=== PATIENT | female | born 1970 | race African-American/Black ===

== ENCOUNTER 2018-10-16 16:48 | Observation (INO) | payer OTHER, MEDICAID ==
[~2018-10-16] VITALS: Ht 185.4 cm; Wt 87.5 kg
[2018-10-16 16:52] VITALS: BP 176/91
[2018-10-16 17:56] LABS: ABSOLUTE EOSINOPHILS 0.1 thou/uL (0.0-0.7); ABSOLUTE LYMPHOCYTES 3.1 thou/uL (0.8-5.3); ABSOLUTE MONOCYTES 1.1 thou/uL (0.0-1.2); ABSOLUTE NEUTROPHILS 7.1 thou/uL (1.6-8.1); BASOPHILS 0.3 %; EOSINOPHILS 1.2 %; HEMATOCRIT 36.5 % (37.0-47.0); HEMOGLOBIN 12.2 gm/dL (12.0-15.0); LYMPHOCYTES 27.2 %; MCHC 33.6 g/dL (28.0-37.0); MCV 80.5 fL (80.0-100.0); MONOCYTES 9.8 %; MPV 8.9 fl. (7.2-11.1); NUCLEATED RBCS 0 /100WBC; PLATELET COUNT* 335 thou/uL (150-400); POLYS 61.5 %; RBC 4.53 mil/uL (4.20-5.00); RDW-CV 15.5 % (10.5-14.5); WBC 11.5 thou/uL (4.0-11.0)
[2018-10-16 17:58] LABS: ANION GAP 9 mmol/L (7-16); BUN 17 mg/dL (7-18); CALCIUM 8.7 mg/dL (8.5-10.1); CHLORIDE 105 mmol/L (98-107); CO2 25 mmol/L (21-32); CREATININE 0.9 mg/dL (0.6-1.3); GLUCOSE 94 mg/dL (70-99); POTASSIUM 3.6 mmol/L (3.5-5.1); SODIUM 139 mmol/L (136-145)
[2018-10-16 18:09] LABS: ALBUMIN 3.2 g/dL (3.4-5.0); ALKALINE PHOSPHATASE 48 U/L (46-116); LIPASE 182 U/L (73-393); NT-PRO BRAIN NAT PEPTIDE 87 pg/mL (<300); SGOT 15 U/L (15-37); SGPT 23 U/L (30-65); TOTAL BILIRUBIN 0.4 mg/dL (<0.1-1.0); TOTAL PROTEIN 7.3 g/dL (6.4-8.2); TROPONIN-I LEVEL <0.06 ng/mL (<0.06)
[2018-10-16 18:15] LABS: APTT 29.8 Seconds (25.0-31.3)
--- NOTE | 2018-10-16 18:24 | NUR ---
PT AMBULATED TO WITHOUT INCIDENT.
[2018-10-16 20:19] VITALS: BP 154/84
[2018-10-16 21:00] VITALS: BP 155/87
[2018-10-17] VITALS: BP 152/81
[2018-10-17 04:00] VITALS: BP 141/89
--- NOTE | 2018-10-17 04:14 | NUR ---
VITALS WNL. SEE MAR. SEE CHARTING. HOURLY ROUNDING FOR SAFETY.
[2018-10-17 08:00] VITALS: BP 141/79
--- NOTE | 2018-10-17 10:20 | NUR ---
RECEIVED REPORT FROM JULIENNE YOUNG. ASSUMED CARE OF PT AROUND 0730. PT A&OX4. VSS. STAFF DEVELOPMENT EDUCATOR IN PLACE TRACING SR. AM ASSESSMENT AND VITALS COMPLETED CHARTED. IV TO RIGHT AC INTACT AND SALINE LOCKED. PT REPORTS CHEST PAIN 6/10 THAT OCCURED AFTER WALKING TO THE RESTROOM. NITRO GIVEN WITH RELIEF. CARDIOLOGY IN TO SEE PT - PLAN IS FOR STRESS TEST IN A.M.. MEDS PER EMAR. PT EATING BOX LUNCH AT THIS TIME. ALL NEEDS MET. LOW FALL RISK PRECAUTIONS IN PLACE. CALL LIGHT IS WITHIN REACH. HOURLY ROUNDING PERFORMED. WCTM.
[2018-10-17 11:22] VITALS: BP 118/59
[2018-10-17 16:00] VITALS: BP 140/86
--- NOTE | 2018-10-17 17:29 | NUR ---
VSS. DEMURRAGE AGENT REMAINS IN PLACE WITH NO CHAGNES THIS SHIFT. PT HAD DECREASING CHEST PAIN THROUGHOUT THE SHIFT - PT OBTAINED RELIEF FROM IV PAIN MEDICATION. PT CURRENTLY DENIES CHEST PAIN. IV TO RIGHT AC REMAINS INTACT AND SALINE LOCKED. PT UP AD DEANDRE TO RESTROOM, VOIDING WITHOUT ISSUE. TOLERATING DIET. NO COMPLAINTS. ALL NEEDS MET AT THIS TIME. LOW FALL RISK PRECAUTIONS IN PLACE. CALL LIGHT IS WITHIN REACH, HOURLY ROUNDING PERFORMED. WCTM FOR DURATION OF SHIFT,
--- NOTE | 2018-10-17 18:49 | NUR ---
PT SHOWERED AND WENT TO THE RESTROOM; CHEST PAIN HAS RETURNED 02/07. IV PAIN MEDS GIVEN. EDG OBTAINED.
[2018-10-18] VITALS: BP 124/68
[2018-10-18 04:00] VITALS: BP 145/78
--- NOTE | 2018-10-18 06:42 | NUR ---
VITALS WNL. PT NPO SINCE 0000 FOR STRESS TEST IN AM. SEE MAR. SEE CHARTING. HOURLY ROUNDING FOR SAFETY.
[2018-10-18 08:00] VITALS: BP 155/92
--- NOTE | 2018-10-18 08:00 | NUR ---
PT LYING IN BED, CALL LIGHT IN REACH, FORM RAISER TRACING SINUS RHYTHM. PT REMAINS NPO FOR STRESS TEST, DENIES ANY PAIN, VSS. LS CTA, PT ON RA. WILL CONT TO MONITOR.
--- NOTE | 2018-10-18 12:46 | CON ---
[address] [address] CONSULTATION Name: MOLLY MOLINA Room: [address] Cecy Maravilla#: [id number] Admission: 10/16/18 Attend Phys: Rob Samayoa MD Discharge: Date of : 70 Report #: [id number] THIS REPORT FOR: //name// CC: RICARDO physician/PCP Rob Samayoa DATE OF SERVICE: 10/17/2018 CARDIOLOGY CONSULTATION: HISTORY OF PRESENT ILLNESS: I was asked by Dr. Samayoa to see this 48-year-old woman in cardiology consultation for evaluation and treatment of chest pain. This lady has had chest pain continuously for 3 days. The chest discomfort is reproduced by palpation of the sternum. She gets it with activity. It is better with rest. It does occur at rest; however, it is associated with shortness of breath, but not nausea or vomiting. She has had some diaphoresis with it. There is no relationship to food. She thought that it got better with nitroglycerin. The pain does radiate into her left shoulder and left arm and neck, however. The pain has been continuous for 3 days, but it does tend to wax and wane. It is definitely worse if she moves her chest wall and sits up or turn sideways. It is worse if she takes a deep breath. She does have some dyspnea on exertion with it. She has not had orthopnea, PND or edema. The dyspnea on exertion comes and goes. She is not short of breath at rest. She has had 2 episodes of syncope in the distant past that seemed to have been orthostatic. Coronary risk factors include smoking. She only smokes 5 cigarettes a day, but she smoked since she was 16. I told her in no uncertain terms today to stop smoking. She denies hypercholesterolemia or diabetes or high blood pressure, although she was hypertensive when she was admitted and she does have left ventricular hypertrophy on her EKG and her cardiac silhouette was prominent on her chest x-ray. Otherwise, her chest x-ray was unremarkable. She was started on carvedilol shortly after she was admitted and her blood pressure is still a bit on the high side. She was 141/89 this morning. She does have a family history of coronary artery disease. Her father had bypass graft surgery at age 65. She has a sister who has congestive heart failure. She has not had renal disease or peripheral vascular disease or strokes or TIAs or pain in her legs when she walks or open or nonhealing wounds. She has no prior cardiac history. She has no other past medical history. PAST SURGICAL HISTORY: She had surgery on her left ankle and her right wrist. ALLERGIES: SHE IS ALLERGIC TO AMOXICILLIN, PENICILLIN. MEDICATIONS: She has not been taking any medications at home. SOCIAL HISTORY: She is single. Smokes 5 cigarettes a day. Drinks about 6 alcoholic [place] [address] CONSULTATION Name: MOLLY MOLINA Room: [address] Cecy Maravilla#: [id number] Admission: 10/16/18 Attend Phys: Rob Samayoa MD Discharge: Date of : 70 Report #: [id number] REVIEW OF SYSTEMS: Positive for cough, chest discomfort, shortness of breath with exercise, shortness of breath lying down, waking up short of breath and nearly passing out. The shortness of breath issues are just with this event as is the chest discomfort. She has PENICILLIN ALLERGY. She describes she wears glasses. Otherwise, review of systems is negative for some 40 different complaints in 14 different system categories. Please see our review of system form for details and negatives in review of systems. PHYSICAL EXAMINATION: GENERAL: She presents as well-developed, well-nourished woman in no acute distress. Her anterior chest wall over the sternum was quite tender to palpation and did reproduce her symptoms. VITAL SIGNS: Her pulse was 61 and regular, blood pressure is 141/89, respirations 18 and regular, and temperature is 98.1. HEENT: Her head was atraumatic. Eyes clear. NECK: Supple. There is no jugular venous distention or hepatojugular reflux. Thyroid is not enlarged. There is no adenopathy. SKIN: Warm and dry. Mucous membranes are moist. LUNGS: Clear to auscultation and percussion. HEART: Revealed normal first and second heart sound. There is soft S4. There is no S3. There are no murmurs, rubs, thrills, heaves or gallops. PMI is nondisplaced. ABDOMEN: Soft, flat, nontender, no palpable masses, no organomegaly. EXTREMITIES: Reveal no cyanosis, clubbing or edema. NEUROLOGIC: The patient mentated normally, talked normally, moved all extremities normally. LABORATORY DATA: EKG reveals normal sinus rhythm and left ventricular hypertrophy by voltage in aVL, otherwise is fairly unremarkable. Chest x-ray showed only some mild cardiac fullness of the cardiac silhouette. Troponins were negative x 3. BNP was only 87. IMPRESSION: 1. Chest pain that is likely musculoskeletal, possibly due to costochondritis. 2. Essential hypertension. 3. Smoking. 4. Left ventricular hypertrophy. RECOMMENDATION: She should get a nuclear stress test and an echo as well as various blood tests. Repeat her EKG and repeat a troponin as well. [facility] [address] [place] [address] CONSULTATION Name: MOLLY MOLINA Room: [address] Cecy Maravilla#: [id number] Admission: 10/16/18 Attend Phys: Rob Samayoa MD Discharge: Date of : 70 Report #: [id number] Thank you very much for asking me to see this patient. If there are any questions, please feel free to contact me. <ELECTRONICALLY SIGNED> By: Alexandro Lee MD, FACC 10/18/18 1246 1017 2052F. Jorge Rodas MD, FACC /nt
[2018-10-18 13:11] LABS: ANA INTERPRETATION Negative (Negative)
--- NOTE | 2018-10-18 14:09 | EKG ---
[place] [address] ELECTROCARDIOGRAM REPORT Name: MOLLY MOLINA Room: [address] M.R.#: [id number] Admission: 10/16/18 Attend Phys: Rob Samayoa MD Discharge: Date of : 70 Report #: [id number] THIS REPORT FOR: //name// [facility] ED Test Date: 2018-10-16 Test Time: 16:54:55 Pat Name: MOLLY MOLINA Department: Room: [facility] Gender: F Mammal Keeper: MINH : 1970 Requested By: Nan Velasco Order Number: [id number] MD: Demetris Mackenzie Measurements Intervals [place] Rate: 71 P: 47 [place]: 155 QRS: -24 QRSD: 97 T: 9 QT: 420 QTc: 457 Interpretive Statements Sinus rhythm Left ventricular hypertrophy No previous ECG available for comparison Electronically Signed On 10-18-2018 14:09:15 AUTOMATIC LUMP MAKING MACHINE TENDER by Demetris Mackenzie [email or web address] <ELECTRONICALLY SIGNED> By: Demetris Mackenzie MD, [facility] 10/18/18 1409 1654 165 Demetris Mackenzie MD, FACC /EPI
--- NOTE | 2018-10-18 14:10 | EKG ---
[place] [address] ELECTROCARDIOGRAM REPORT Name: CHAVA MOLINACANDI Room: [address] M.R.#: [id number] Admission: 10/16/18 Attend Phys: Rob Samayoa MD Discharge: Date of : 70 Report #: [id number] THIS REPORT FOR: //name// [facility] ED Test Date: 2018-10-16 Test Time: 18:05:35 Pat Name: MOLLY MOLINA Department: Room: [address] Gender: F Instructor Trainer Canine Service: SHABBIR : 1970 Requested By: Nan Velasco Order Number: [id number] Cam MD: Demetris Mackenzie Measurements Intervals [place] Rate: 58 P: 31 ID: 164 QRS: -24 QRSD: 97 T: -10 QT: 450 QTc: 443 Interpretive Statements Sinus rhythm Probable left atrial enlargement Left ventricular hypertrophy Borderline T abnormalities, inferior leads No previous ECG available for comparison Electronically Signed On 10-18-2018 14:09:48 LAWYER REAL ESTATE by Demetris Mackenzie [email or web address] <ELECTRONICALLY SIGNED> By: Demetris Mackenzie MD, [facility] 10/18/18 1409 1805 180 Demetris Mackenzie MD, [facility] /EPI
--- NOTE | 2018-10-18 14:13 | EKG ---
[place] [address] ELECTROCARDIOGRAM REPORT Name: ATIFKETURAHMOLLY Room: [address] M.R.#: [id number] Admission: 10/16/18 Attend Phys: Rob Samayoa MD Discharge: Date of : 70 Report #: [id number] THIS REPORT FOR: //name// [facility] Test Date: 2018-10-17 Test Time: 10:18:48 Pat Name: MOLLY MOLINA Department: Room: [address] Gender: F Doormaker: : 1970 Requested By: Girish Rodas Order Number: [id number] Cam MD: Demetris Mackenzie Measurements Intervals [place] Rate: 60 P: 1 [place]: 159 QRS: -20 QRSD: 105 T: -1 QT: 462 QTc: 462 Interpretive Statements Sinus rhythm Left ventricular hypertrophy No previous ECG available for comparison Electronically Signed On 10-18-2018 14:13:20 SILVER DESIGNER by Demetris Mackenzie [email or web address] <ELECTRONICALLY SIGNED> By: Demetris Mackenzie MD, [facility] 10/18/18 1413 1018 17 Demetris Mackenzie MD, FACC /EPI
--- NOTE | 2018-10-18 14:17 | EKG ---
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 Tender: K : 1970 Requested By: Rob Samayoa Order Number: [id number] Cam MD: Demetris Mackenzie Measurements Intervals [place] Rate: 67 P: 14 [place]: 154 QRS: -20 QRSD: 99 T: -2 QT: 433 QTc: 457 Interpretive Statements Sinus rhythm Left ventricular hypertrophy Borderline T abnormalities, inferior leads No previous ECG available for comparison Electronically Signed On 10-18-2018 14:17:23 ECHO VASC TECH by Demetris Mackenzie [email or web address] <ELECTRONICALLY SIGNED> By: Demetris Mackenzie MD, [facility] 10/18/18 1417 52 52 Demetris Mackenzie MD, FACC /EPI
--- NOTE | 2018-10-18 16:21 | CARDNUC ---
[place] [address] CARDIAC NUCLEAR IMAGING REPORT Name: YONIS MOLINANicholas Room: [address] M.RChidi#: [id number] Admission: 10/16/18 Attend Phys: Rob Samayoa, Discharge: Date of : 70 Date of Service: 10/18/18 1621 Report #: [id number] THIS REPORT FOR: //name// APPROVED REPORT Imaging Protocol: Rest Tc-99m/Stress Tc-99m 1 day Study performed: 10/17/2018 10:07:00 Indication: Chest pain, Dyspnea, Syncope, Palpitations, LVH Patient Location: In-Patient Room [facility] Stress Tech: Niecy Puga Stress Nurse: Rosy Brown RN NM Tech:RAMSEY Tijerina Ht: 6 ft 0 in Wt: 190 lbs BSA: 2.08 m2 HR: 63 bpm BP: 164/101 mmHg BMI: 25.76 Rhythm: NSR Medical History Medications: Aspirin, Carvedilol, Nitroglycerin, Atorvastatin Allergies: Amoxicillin Cardiac Risk Factors: Tobacco History (Current/Recent), FHX of CAD Pretest Chest Pain Characteristics: Sharp/Stabbing chest pain 4/10 Resting Data Rest SPECT myocardial perfusion imaging was performed in supine position 60 minutes following the intravenous injection of 12.0 mCi of Tc-99m Sestamibi. Time of rest injection: 1010 The images were gated to evaluate regional wall motion and calculate left ventricular ejection fraction. Administration Route: IV Administration Site: Right AC Pharmacologic Stress Pharmacologic stress test was performed by injecting Regadenoson 0.4 mg IV push over 10-15 seconds immediately followed by the intravenous injection of 34.3 mCi of Tc-99m Sestamibi. Time of stress injection: 12:50 Administration Route: [place] [address] CARDIAC NUCLEAR IMAGING REPORT Name: MOLLY MOLINA Room: [address] MStephanie#: [id number] Admission: 10/16/18 Attend Phys: Rob Samayoa, Discharge: Date of : 70 Date of Service: 10/18/18 1621 Report #: [id number] Administration Site: Right AC Heart Rate at time of stress injection: 122 bpm. Gated Stress SPECT was performed 40 minutes after stress injection. The images were gated to evaluate regional wall motion and calculate left ventricular ejection fraction. Prone imaging was performed. Stress Test Details Stress Test: Pharmacologic stress testing performed using 0.4 mg of regadenoson per 5 mL given IV over 10 seconds. HR Max Heart Rate (APMHR): 172 bpm Resting HR: 63 bpm Target HR (85% APMHR): 146 bpm Max HR Achieved: 122 bpm % of APMHR: 70 Recovery HR: 89 bpm HR response to stress: Normal HR response to stress BP Resting BP: 164/101 mmHg Max BP: 161/109 mmHg Recovery BP: 173/98 mmHg BP response to stress: Normal blood pressure response to stress. Baseline HTN ECG Resting ECG: Sinus Rhythm Stress ECG: Sinus Rhythm ST Change: None Arrhythmia: None Recovery ECG: Sinus Rhythm Recovery ST Change: None Recovery Arrhythmia: None Clinical Reason for Termination: Completed protocol Stress Symptoms: Sharp/Stabbing Chest pain 2/10 during and post test Exercise capacity: 1.00 METs Stress ECG Conclusion negative Perfusion Review of rest data reveals normal perfusion, [place] [address] CARDIAC NUCLEAR IMAGING REPORT Name: MOLLY MOLINA Room: [address]#: [id number] Admission: 10/16/18 Attend Phys: Rob Samayoa, Discharge: Date of : 70 Date of Service: 10/18/18 1621 Report #: [id number] defects.Imaging obtained following vasodilator stress demonstrate a similar, uniform uptake of tracer without defects. Prone imaging was normal. LVEDV is normal.No segental wall motion abnormality seen. Wall Motion normal all segments Nuclear Conclusion ECG Findings: negative for ischemia Clinical Findings: negative for ischemia Nuclear Findings: negative for ischemia Exercise Capacity: normal Left Ventricular Function: normal Risk Study: low Negative perfusion nuclear stress test for ischemia or infarct. <Conclusion> negative <ELECTRONICALLY SIGNED> By: Osiel Owens MD, FACC 10/18/18 162 20 20 Osiel Owens MD, FACC /INF
[2018-10-18 17:53] VITALS: BP 155/92
[2018-10-18] MEDS ORDERED: PRINIVIL20 MG PO (18:01)
[2018-10-18] MEDS ORDERED: LIPITOR40 MG PO (18:02)
[2018-10-18] MEDS ORDERED: ASPIR 8181 M1 PO (18:03)
--- NOTE | 2018-10-18 18:28 | NUR ---
PT DISCHARGED HOME WITH CHILDREN AND SPOUSE VIA WC AND NURSING STAFF. HOURLY ROUNDING COMPLETED, PT DENIES ANY SOA OR CHEST PAIN THIS SHIFT. PT EDUCATED ON ALL DISCHARGE INSTRUCTIONS INCLUDING MEDICATIONS AND FOLLOW UP APPTS, PT STATES UNDERSTANDING. IV AND WIRE COINER REMOVED.
--- NOTE | 2018-10-19 12:25 | 2DMMODE ---
[place] [address] 2 D/M-MODE ECHOCARDIOGRAM Name: MOLLY MOLINA Room: [address] Cecy Maravilla#: [id number] Admission: 10/16/18 Attend Phys: Rob Samayoa, Discharge: 10/18/18 Date of : 70 Date of Service: 10/18/18 1358 Report #: [id number] THIS REPORT FOR: //name// APPROVED REPORT Study performed: 10/18/2018 10:28:42 EXAM: Comprehensive 2D, Doppler, and color-flow Echocardiogram Patient Location: In-Patient Room #: [facility] Status: routine BSA: 2.11 HR: 62 bpm BP: 155/92 mmHg Rhythm: NSR Other Information Study Quality: Good Indications Chest Pain 2D Dimensions IVSd: 10.51 (7-11mm) LVOT Diam: 23.93 (18-24mm) LVDd: 51.55 mm PWd: 11.47 (7-11mm) Ascending Ao: 34.11 (22-36mm) LVDs: 34.96 (25-40mm) Aortic Root: 30.57 mm Volumes Left Atrial Volume (Systole) LA ESV Index: 32.20 mL/m2 Aortic Valve AoV Peak Gilberto.: 1.09 m/s AO Peak Gr.: 4.77 mmHg LVOT Max P.64 mmHg AO Mean Gr.: 2.72 mmHg LVOT Mean P.13 mmHg LVOT Max V: 0.81 m/s AO V2 VTI: 20.70 cm LVOT Mean V: 0.48 m/s RONALDO (VTI): 3.43 cm2 LVOT V1 VTI: 15.80 cm Mitral Valve E/A Ratio: 1.16 MV Decel. Time: 246.56 ms MV E Max Gilberto.: 0.54 m/[place] [address] 2 D/M-MODE ECHOCARDIOGRAM Name: MOLLY MOLINA Room: [address] Cecy Maravilla#: [id number] Admission: 10/16/18 Attend Phys: Rob Samayoa, Discharge: 10/18/18 Date of : 70 Date of Service: 10/18/18 1358 Report #: [id number] MV PHT: 71.50 ms MVA (PHT): 3.08 cm2 TDI E/Lateral E': 5.40 E/Medial E': 4.50 Medial E' Gilberto.: 0.12 m/s Lateral E' Gilberto.: 0.10 m/s Pulmonary Valve PV Peak Gilberto.: 0.78 m/s PV Peak Gr.: 2.45 mmHg Left Ventricle The left ventricle is normal size. There is normal LV segmental wall motion. Mild concentric left ventricular hypertrophy. Left ventricular systolic function is normal. The left ventricular ejection fraction is within the normal range. LVEF is 50-55%. The left ventricular diastolic function is normal. Right Ventricle The right ventricle is normal size. The right ventricular systolic function is normal. Atria The left atrium size is normal. The right atrium size is normal. Aortic Valve The aortic valve is normal in structure. No aortic regurgitation is present. There is no aortic valvular stenosis. Mitral Valve The mitral valve is normal in structure. Mild mitral regurgitation. No evidence of mitral valve stenosis. Tricuspid Valve The tricuspid valve is normal in structure. Unable to assess PA pressure. Trace tricuspid regurgitation. Pulmonic Valve The pulmonary valve is normal in structure. Mild pulmonic regurgitation. Great Vessels The aortic root is normal in size. IVC is normal in size and collapses >50% [place] [address] 2 D/M-MODE ECHOCARDIOGRAM Name: MOLLY MOLINA [address]: [address] [id number] Admission: 10/16/18 Attend Phys: Rob Samayoa, Discharge: 10/18/18 Date of : 70 Date of Service: 10/18/18 1358 Report #: [id number] Pericardium There is no pericardial effusion. <Conclusion> The left ventricle is normal size. Mild concentric left ventricular hypertrophy. Left ventricular systolic function is normal. The left ventricular ejection fraction is within the normal range. LVEF is 50-55%. The left ventricular diastolic function is normal. The right ventricle is normal size. The aortic valve is normal in structure. The mitral valve is normal in structure. Mild mitral regurgitation. The tricuspid valve is normal in structure. IVC is normal in size and collapses >50% with inspiration. There is no pericardial effusion. There is normal LV segmental wall motion. <ELECTRONICALLY SIGNED> By: Demetris Mackenzie MD, FACC 10/18/18 1358 1358 1358 Demetris Mackenzie MD, FACC /INF
== END 2018-10-18 18:25 | disposition home or self-care (01) ==
LOC: M.ERS 16:48 → M.TBA-ER 18:46 → M.2W 18:46
PROVIDERS: Internal Medicine; Personal Emergency Response Attendant
DX: R07.89 Other chest pain (principal); I10 Essential (primary) hypertension; I51.7 Cardiomegaly; F17.210 Nicotine dependence, cigarettes, uncomplicated; Z79.899 Other long term (current) drug therapy; Z79.82 Long term (current) use of aspirin

== ENCOUNTER 2018-12-08 17:06 | Emergency (ER) | payer OTHER, MEDICAID ==
[~2018-12-08] VITALS: Ht 185.4 cm; Wt 79.4 kg
[~2018-12-08 17:06] MED LIST: ASPIR 8181 M1 PO; LIPITOR40 MG PO; PRINIVIL20 MG PO
[2018-12-08 17:40] LABS: ABSOLUTE EOSINOPHILS 0.1 thou/uL (0.0-0.7); ABSOLUTE LYMPHOCYTES 2.9 thou/uL (0.8-5.3); ABSOLUTE MONOCYTES 1.5 thou/uL (0.0-1.2); ABSOLUTE NEUTROPHILS 6.8 thou/uL (1.6-8.1); BASOPHILS 0.4 %; EOSINOPHILS 1.2 %; HEMATOCRIT 34.1 % (37.0-47.0); HEMOGLOBIN 11.6 gm/dL (12.0-15.0); LYMPHOCYTES 25.5 %; MCH 27.5 pg (26.0-34.0); MCV 80.8 fL (80.0-100.0); MONOCYTES 12.9 %; MPV 8.2 fl. (7.2-11.1); NUCLEATED RBCS 0 /100WBC; PLATELET COUNT* 327 thou/uL (150-400); RBC 4.22 mil/uL (4.20-5.00); RDW-CV 15.1 % (10.5-14.5); WBC 11.3 thou/uL (4.0-11.0)
[2018-12-08 17:56] LABS: ALBUMIN 3.1 g/dL (3.4-5.0); ALKALINE PHOSPHATASE 49 U/L (46-116); ANION GAP 9 mmol/L (7-16); BUN 19 mg/dL (7-18); CALCIUM 8.6 mg/dL (8.5-10.1); CHLORIDE 107 mmol/L (98-107); CO2 23 mmol/L (21-32); CREATININE 0.7 mg/dL (0.6-1.3); GLUCOSE 103 mg/dL (70-99); POTASSIUM 3.6 mmol/L (3.5-5.1); SGOT 19 U/L (15-37); SGPT 25 U/L (30-65); SODIUM 139 mmol/L (136-145); TOTAL BILIRUBIN 0.2 mg/dL (<0.1-1.0); TOTAL PROTEIN 7.2 g/dL (6.4-8.2); TROPONIN-I LEVEL <0.06 ng/mL (<0.06)
[2018-12-08 18:23] VITALS: BP 171/99
--- NOTE | 2018-12-09 18:20 | EKG ---
[place] [address] ELECTROCARDIOGRAM REPORT Name: JESSECHAVACANDI Room: [facility]#: [id number] Admission: 12/08/18 Attend Phys: Discharge: 12/08/18 Date of : 70 Report #: [id number] THIS REPORT FOR: //name// ED Test Date: 2018-12-08 Test Time: 17:10:15 Pat Name: MOLLY MOLINA Department: Room: Gender: F Human Resources Recruiter: LISA : 1970 Requested By: Eryn Billings Order Number: [id number] MD: David Alberts Measurements Intervals [place] Rate: 81 P: 56 NE: 149 QRS: -19 QRSD: 98 T: 7 QT: 396 QTc: 460 Interpretive Statements Sinus rhythm Left ventricular hypertrophy, by voltage Anterior Q waves, possibly due to LVH Compared to ECG 10/17/2018 18:53:23 Q waves now present T-wave abnormality no longer present Electronically Signed On 12-09-2018 18:19:51 CDT by David Alberts [email or web address] <ELECTRONICALLY SIGNED> By: David Alberts MD, FAC 12/09/18 1819 1710 171 David Alberts MD, [facility] /EPI
== END 2018-12-08 18:35 | disposition home or self-care (01) ==
LOC: M.ERS 17:06
PROVIDERS: Nurse Practitioner Family
DX: R07.89 Other chest pain (principal); I10 Essential (primary) hypertension; E78.5 Hyperlipidemia, unspecified; F32.9 Major depressive disorder, single episode, unspecified; F41.9 Anxiety disorder, unspecified; F17.210 Nicotine dependence, cigarettes, uncomplicated; Z88.0 Allergy status to penicillin; Z88.1 Allergy status to other antibiotic agents

== ENCOUNTER 2018-12-09 01:00 | Emergency (ER) | payer OTHER, MEDICAID ==
[~2018-12-09] VITALS: Ht 185.4 cm; Wt 79.4 kg
[2018-12-09 01:25] LABS: ABSOLUTE BASOPHILS 0.1 thou/uL (0.0-0.2); ABSOLUTE EOSINOPHILS 0.2 thou/uL (0.0-0.7); ABSOLUTE LYMPHOCYTES 3.4 thou/uL (0.8-5.3); ABSOLUTE MONOCYTES 1.5 thou/uL (0.0-1.2); ABSOLUTE NEUTROPHILS 7.8 thou/uL (1.6-8.1); BASOPHILS 0.8 %; EOSINOPHILS 1.3 %; HEMATOCRIT 35.4 % (37.0-47.0); HEMOGLOBIN 11.9 gm/dL (12.0-15.0); LYMPHOCYTES 26.2 %; MCH 27.3 pg (26.0-34.0); MCHC 33.8 g/dL (28.0-37.0); MCV 80.7 fL (80.0-100.0); MONOCYTES 11.3 %; MPV 8.6 fl. (7.2-11.1); NUCLEATED RBCS 0 /100WBC; PLATELET COUNT* 329 thou/uL (150-400); POLYS 60.4 %; RBC 4.38 mil/uL (4.20-5.00); RDW-CV 15.4 % (10.5-14.5); WBC 12.9 thou/uL (4.0-11.0)
[2018-12-09 01:48] LABS: ALBUMIN 3.1 g/dL (3.4-5.0); ALKALINE PHOSPHATASE 43 U/L (46-116); ANION GAP 10 mmol/L (7-16); BUN 15 mg/dL (7-18); CALCIUM 8.7 mg/dL (8.5-10.1); CHLORIDE 107 mmol/L (98-107); CO2 22 mmol/L (21-32); CREATININE 0.7 mg/dL (0.6-1.3); GLUCOSE 100 mg/dL (70-99); POTASSIUM 3.7 mmol/L (3.5-5.1); SGOT 14 U/L (15-37); SGPT 24 U/L (30-65); SODIUM 139 mmol/L (136-145); TOTAL BILIRUBIN 0.3 mg/dL (<0.1-1.0); TOTAL PROTEIN 7.3 g/dL (6.4-8.2); TROPONIN-I LEVEL <0.06 ng/mL (<0.06)
[2018-12-09 02:01] VITALS: BP 161/93
--- NOTE | 2018-12-09 18:23 | EKG ---
[place] [address] ELECTROCARDIOGRAM REPORT Name: MOLLY MOLINA Room: [facility]#: [id number] Admission: 12/09/18 Attend Phys: Discharge: 12/09/18 Date of : 70 Report #: [id number] THIS REPORT FOR: //name// [facility] ED Test Date: 2018-12-09 Test Time: 01:03:27 Pat Name: MOLLY MOLINA Department: Room: Gender: F Senior Clinician: CASANDRA : 1970 Requested By: Joe Mcgrath Order Number: [id number] MD: David Alberts Measurements Intervals [place] Rate: 70 P: 55 [place]: 162 QRS: -12 QRSD: 96 T: 6 QT: 419 QTc: 453 Interpretive Statements Sinus rhythm Probable left atrial enlargement Left ventricular hypertrophy, by voltage Anterior Q waves, possibly due to LVH Compared to ECG 10/17/2018 18:53:23 Q waves now present T-wave abnormality no longer present Electronically Signed On 12-09-2018 18:23:06 CDT by David Alberts [email or web address] <ELECTRONICALLY SIGNED> By: David Alberts MD, FACC 12/09/18 1823 0103 0103 David Alberts MD, FAC /EPI
== END 2018-12-09 02:01 ==
LOC: M.ERS 01:00
PROVIDERS: Family Medicine
DX: R07.2 Precordial pain (principal); F17.210 Nicotine dependence, cigarettes, uncomplicated; F41.9 Anxiety disorder, unspecified; F32.9 Major depressive disorder, single episode, unspecified; I10 Essential (primary) hypertension; E78.5 Hyperlipidemia, unspecified; Z88.1 Allergy status to other antibiotic agents; Z88.0 Allergy status to penicillin

== ENCOUNTER 2018-12-16 11:39 | Emergency (ER) | payer OTHER, MEDICAID ==
[~2018-12-16] VITALS: Ht 185.4 cm; Wt 79.4 kg
[2018-12-16 12:17] LABS: URINE BILIRUBIN NEGATIVE (Negative); URINE BLOOD 2+ (Negative); URINE CLARITY CLEAR; URINE COLOR YELLOW; URINE GLUCOSE-RANDOM NEGATIVE (Negative); URINE KETONES NEGATIVE (Negative); URINE LEUKOCYTES-REFLEX TRACE (Negative); URINE NITRITE-REFLEX NEGATIVE (Negative); URINE PROTEIN NEGATIVE (Negative); URINE UROBILINOGEN 0.2 E.U./dl (0.2-1.0)
[2018-12-16 12:24] LABS: SQUAMOUS >10 Many /LPF (0-3)
[2018-12-16 12:26] LABS: URINE RBC 3-10 Few /HPF (0-2); URINE WBC-REFLEX 0-5 Rare /HPF (0-5)
[2018-12-16 12:27] LABS: CASTS None Seen /LPF (None Seen); CRYSTALS None Seen /LPF (None Seen); MUCUS >6 Heavy strn/LPF (None Seen)
[2018-12-16] MEDS ORDERED: BACTRIM DS TAB1 EACH PO (12:38)
[2018-12-16] MEDS ORDERED: NABUMETONE 750750 M1 PO (12:38)
[2018-12-16] MEDS ORDERED: FLEXERIL PO (12:38)
[2018-12-16 12:55] VITALS: BP 147/97
== END 2018-12-16 12:55 | disposition home or self-care (01) ==
LOC: M.ERS 11:39
PROVIDERS: Nurse Practitioner Family
DX: N39.0 Urinary tract infection, site not specified (principal); M54.5 Low back pain; I10 Essential (primary) hypertension; E78.5 Hyperlipidemia, unspecified; F32.9 Major depressive disorder, single episode, unspecified; F41.9 Anxiety disorder, unspecified; F17.210 Nicotine dependence, cigarettes, uncomplicated; Z88.0 Allergy status to penicillin; Z88.1 Allergy status to other antibiotic agents

== ENCOUNTER 2019-01-12 13:00 | Emergency (ER) | payer OTHER, MEDICAID ==
[~2019-01-12] VITALS: Ht 185.4 cm; Wt 79.4 kg
[~2019-01-12 13:00] MED LIST changes: +BACTRIM DS TAB1 EACH PO; +FLEXERIL PO; +NABUMETONE 750750 M1 PO
[2019-01-12 13:37] LABS: URINE BLOOD 3+ (Negative); URINE CLARITY CLEAR; URINE COLOR DARK YELLOW; URINE GLUCOSE-RANDOM NEGATIVE (Negative); URINE KETONES TRACE (Negative); URINE LEUKOCYTES-REFLEX NEGATIVE (Negative); URINE NITRITE-REFLEX NEGATIVE (Negative); URINE PROTEIN 2+ (Negative); URINE SPECIFIC GRAVITY >= 1.030 (1.005-1.030)
[2019-01-12 13:43] LABS: ICTOTEST (BILI CONFIRMATORY) Negative (Negative); URINE BILIRUBIN 1+ (Negative)
[2019-01-12 13:47] LABS: ABSOLUTE BASOPHILS 0.1 thou/uL (0.0-0.2); ABSOLUTE EOSINOPHILS 0.1 thou/uL (0.0-0.7); ABSOLUTE LYMPHOCYTES 2.7 thou/uL (0.8-5.3); ABSOLUTE MONOCYTES 1.2 thou/uL (0.0-1.2); ABSOLUTE NEUTROPHILS 10.1 thou/uL (1.6-8.1); BASOPHILS 0.7 %; EOSINOPHILS 0.9 %; HEMATOCRIT 37.5 % (37.0-47.0); HEMOGLOBIN 12.7 gm/dL (12.0-15.0); LYMPHOCYTES 18.9 %; MCH 27.2 pg (26.0-34.0); MONOCYTES 8.6 %; MPV 8.4 fl. (7.2-11.1); NUCLEATED RBCS 0 /100WBC; PLATELET COUNT* 393 thou/uL (150-400); POLYS 70.9 %; RBC 4.69 mil/uL (4.20-5.00); RDW-CV 14.9 % (10.5-14.5); WBC 14.2 thou/uL (4.0-11.0)
[2019-01-12 13:53] LABS: COARSE GRANULAR CASTS 0-3 Few /LPF (None Seen); CRYSTALS None Seen /LPF (None Seen); SQUAMOUS 4-10 Moderate /LPF (0-3); URINE RBC 3-10 Few /HPF (0-2); URINE WBC-REFLEX 6-15 Few /HPF (0-5)
[2019-01-12 13:57] LABS: CALCIUM 8.9 mg/dL (8.5-10.1); CREATININE 0.9 mg/dL (0.6-1.3); POTASSIUM 3.6 mmol/L (3.5-5.1)
[2019-01-12 14:01] LABS: ALBUMIN 3.6 g/dL (3.4-5.0); TOTAL BILIRUBIN 0.6 mg/dL (<0.1-1.0); TOTAL PROTEIN 8.1 g/dL (6.4-8.2)
[2019-01-12] MEDS ORDERED: ZOFRAN4 MG PO (15:13)
[2019-01-12 15:26] VITALS: BP 137/85
== END 2019-01-12 15:26 | disposition home or self-care (01) ==
LOC: M.ERS 13:00
PROVIDERS: Nurse Practitioner Family
DX: K52.9 Noninfective gastroenteritis and colitis, unspecified (principal); I10 Essential (primary) hypertension; E78.5 Hyperlipidemia, unspecified; F32.9 Major depressive disorder, single episode, unspecified; F41.9 Anxiety disorder, unspecified; F17.210 Nicotine dependence, cigarettes, uncomplicated; Z88.0 Allergy status to penicillin; Z88.1 Allergy status to other antibiotic agents

== ENCOUNTER 2019-03-16 22:14 | Emergency (ER) | payer OTHER, MEDICAID ==
[~2019-03-16] VITALS: Ht 185.4 cm; Wt 88.5 kg
[~2019-03-16 22:14] MED LIST changes: +ZOFRAN4 MG PO
[2019-03-16 22:52] LABS: ABSOLUTE BASOPHILS 0.1 thou/uL (0.0-0.2); ABSOLUTE EOSINOPHILS 0.2 thou/uL (0.0-0.7); ABSOLUTE LYMPHOCYTES 3.5 thou/uL (0.8-5.3); ABSOLUTE MONOCYTES 1.1 thou/uL (0.0-1.2); BASOPHILS 0.8 %; EOSINOPHILS 1.3 %; HEMOGLOBIN 11.8 gm/dL (12.0-15.0); LYMPHOCYTES 26.9 %; MCH 26.5 pg (26.0-34.0); MCHC 33.7 g/dL (28.0-37.0); MCV 78.8 fL (80.0-100.0); MONOCYTES 8.3 %; MPV 8.1 fl. (7.2-11.1); NUCLEATED RBCS 0 /100WBC; PLATELET COUNT* 411 thou/uL (150-400); POLYS 62.7 %; RBC 4.44 mil/uL (4.20-5.00); RDW-CV 15.3 % (10.5-14.5); WBC 12.8 thou/uL (4.0-11.0)
[2019-03-16 23:05] LABS: PROTIME 10.1 Seconds (9.20-11.50)
[2019-03-16 23:07] LABS: ANION GAP 10 mmol/L (7-16); BUN 11 mg/dL (7-18); CALCIUM 8.7 mg/dL (8.5-10.1); CHLORIDE 104 mmol/L (98-107); CO2 24 mmol/L (21-32); GLUCOSE 106 mg/dL (70-99); POTASSIUM 3.4 mmol/L (3.5-5.1); SODIUM 138 mmol/L (136-145)
[2019-03-16 23:14] LABS: ALBUMIN 3.2 g/dL (3.4-5.0); ALKALINE PHOSPHATASE 61 U/L (46-116); LIPASE 208 U/L (73-393); SGOT 16 U/L (15-37); SGPT 31 U/L (30-65); TOTAL BILIRUBIN 0.4 mg/dL (<0.1-1.0); TOTAL PROTEIN 7.4 g/dL (6.4-8.2); TROPONIN-I LEVEL <0.06 ng/mL (<0.06)
[2019-03-17 01:44] VITALS: BP 170/89
--- NOTE | 2019-03-17 16:27 | EKG ---
[place] [address] ELECTROCARDIOGRAM REPORT Name: MOLLY MOLINA Room: [facility]#: [id number] Admission: 03/16/19 Attend Phys: Discharge: 03/17/19 Date of : 70 Report #: [id number] THIS REPORT FOR: //name// [facility] ED Test Date: 2019-03-16 Test Time: 22:22:29 Pat Name: CHAVAMARLYNNicholas MOLINA Department: Room: Gender: F Pay Station Department Manager: : 1970 Requested By: Nan Velasco Order Number: [id number] MD: David Alberts Measurements Intervals [place] Rate: 79 P: 51 [place]: 163 QRS: -26 QRSD: 106 T: 19 QT: 397 QTc: 456 Interpretive Statements Sinus rhythm Left ventricular hypertrophy, by voltage Anterior Q waves, possibly due to LVH Compared to ECG 12/09/2018 01:03:27 No significant changes Electronically Signed On 03-17-2019 16:26:57 CDT by David Alberts [email or web address] <ELECTRONICALLY SIGNED> By: David Alberts MD, [facility] 03/17/19 1626 21 21 David Alberts MD, [facility] /EPI
== END 2019-03-17 01:45 | disposition left against medical advice (07) ==
LOC: M.ERS 22:14
PROVIDERS: Personal Emergency Response Attendant
DX: I16.0 Hypertensive urgency (principal); F41.9 Anxiety disorder, unspecified; F32.9 Major depressive disorder, single episode, unspecified; E78.5 Hyperlipidemia, unspecified; F17.210 Nicotine dependence, cigarettes, uncomplicated; Z88.0 Allergy status to penicillin; Z98.51 Tubal ligation status; Z98.890 Other specified postprocedural states; Z88.1 Allergy status to other antibiotic agents

== ENCOUNTER 2019-09-24 14:40 | Emergency (ER) | payer OTHER, MEDICAID ==
[~2019-09-24] VITALS: Ht 188 cm; Wt 79.4 kg
[2019-09-24] MEDS ORDERED: FLEXERIL PO (15:45)
[2019-09-24] MEDS ORDERED: NORCO 5-325 TA1 EAC1 PO (15:45)
[2019-09-24 16:47] VITALS: BP 161/87
== END 2019-09-24 16:48 | disposition home or self-care (01) ==
LOC: M.ERS 14:40
DX: S30.0XXA Contusion of lower back and pelvis, initial encounter (principal); E78.5 Hyperlipidemia, unspecified; I10 Essential (primary) hypertension; F17.210 Nicotine dependence, cigarettes, uncomplicated; Z88.1 Allergy status to other antibiotic agents; Z88.0 Allergy status to penicillin; Z98.51 Tubal ligation status; W00.0XXA Fall on same level due to ice and snow, initial encounter; Y93.89 Activity, other specified; Y92.89 Other specified places as the place of occurrence of the external cause; Y99.8 Other external cause status

== ENCOUNTER 2019-09-30 18:41 | Emergency (ER) | payer OTHER, MEDICAID ==
[~2019-09-30] VITALS: Ht 188 cm; Wt 79.4 kg
--- NOTE | ~2019-09-30 | EKG ---
[place] [address] ELECTROCARDIOGRAM REPORT Name: MOLLY MOLINA Room: [facility]#: [id number] Admission: Attend Phys: Discharge: Date of : 70 Date of Service: 09/30/19 1848 Report #: [id number] THIS REPORT FOR: cc: FAM - No family physician/PCP Kaitlin Madrigal MD ~ THIS REPORT FOR: //name// [facility] ED Test Date: 2019-09-30 Test Time: 18:48:16 Pat Name: CHAVAMARLYNNicholas MOLINA Department: Room: Gender: F Survey Instrument Operator: : 1970 Requested By: Clyde Muhammad Order Number: [id number] MD: Measurements Intervals [place] Rate: 94 P: 18 [place]: 147 QRS: -24 QRSD: 90 T: QT: 353 QTc: 442 Interpretive Statements Sinus rhythm Ventricular bigeminy Left ventricular hypertrophy Anterior Q waves, possibly due to LVH Baseline wander in lead(s) V2 Compared to ECG 03/16/2019 22:22:29 Ventricular premature complex(es) now present [email or web address] By: 1848 1848 Epiphany Epiphany, /LILLIAM
[~2019-09-30 18:41] MED LIST changes: +NORCO 5-325 TA1 EAC1 PO
[2019-09-30] MEDS ORDERED: NITROGLYCERIN0.3 M1 (18:51)
[2019-09-30 19:01] LABS: ABSOLUTE BASOPHILS 0.1 thou/uL (0.0-0.2); ABSOLUTE EOSINOPHILS 0.1 thou/uL (0.0-0.7); ABSOLUTE LYMPHOCYTES 2.6 thou/uL (0.8-5.3); ABSOLUTE MONOCYTES 1.2 thou/uL (0.0-1.2); ABSOLUTE NEUTROPHILS 11.5 thou/uL (1.6-8.1); BASOPHILS 0.9 %; EOSINOPHILS 0.6 %; HEMATOCRIT 33.3 % (37.0-47.0); HEMOGLOBIN 11.5 gm/dL (12.0-15.0); LYMPHOCYTES 16.9 %; MCH 27.1 pg (26.0-34.0); MCHC 34.5 g/dL (28.0-37.0); MCV 78.5 fL (80.0-100.0); MONOCYTES 7.6 %; MPV 8.5 fl. (7.2-11.1); NUCLEATED RBCS 0 /100WBC; PLATELET COUNT* 391 thou/uL (150-400); RBC 4.25 mil/uL (4.20-5.00); RDW-CV 16.1 % (10.5-14.5); WBC 15.5 thou/uL (4.0-11.0)
[2019-09-30 19:13] LABS: CALCIUM 7.8 mg/dL (8.5-10.1); CREATININE 0.8 mg/dL (0.6-1.3); POTASSIUM 3.6 mmol/L (3.5-5.1)
[2019-09-30 19:24] LABS: ALBUMIN 3.3 g/dL (3.4-5.0); MAGNESIUM 1.8 mg/dL (1.8-2.4); TOTAL BILIRUBIN 0.4 mg/dL (<0.1-1.0); TOTAL PROTEIN 7.4 g/dL (6.4-8.2)
[2019-09-30 19:51] LABS: APTT 28.9 Seconds (25.0-31.3); PROTIME 10.4 Seconds (9.20-11.50)
[2019-09-30] MEDS ORDERED: MEDROLDOSEPACK PO (21:36)
[2019-09-30] MEDS ORDERED: MELOXICAM15 MG PO (21:36)
[2019-09-30 21:45] VITALS: BP 158/63
== END 2019-09-30 21:45 ==
LOC: M.ERS 18:41
PROVIDERS: Emergency Medicine Emergency Medical Services; Personal Emergency Response Attendant
DX: M94.0 Chondrocostal junction syndrome [Tietze] (principal); I10 Essential (primary) hypertension; E78.5 Hyperlipidemia, unspecified; F41.9 Anxiety disorder, unspecified; F32.9 Major depressive disorder, single episode, unspecified; F17.210 Nicotine dependence, cigarettes, uncomplicated; Z98.51 Tubal ligation status; Z88.0 Allergy status to penicillin; Z88.1 Allergy status to other antibiotic agents

== ENCOUNTER 2019-10-04 12:48 | Emergency (ER) | payer OTHER, MEDICAID ==
[~2019-10-04] VITALS: Ht 188 cm; Wt 83.9 kg
--- NOTE | ~2019-10-04 | EKG ---
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
[~2019-10-04 12:48] MED LIST changes: +MEDROLDOSEPACK PO; +MELOXICAM15 MG PO; +NITROGLYCERIN0.3 M1
[2019-10-04 13:17] LABS: ABSOLUTE EOSINOPHILS 0.1 thou/uL (0.0-0.7); ABSOLUTE LYMPHOCYTES 3.8 thou/uL (0.8-5.3); ABSOLUTE MONOCYTES 0.9 thou/uL (0.0-1.2); ABSOLUTE NEUTROPHILS 5.7 thou/uL (1.6-8.1); BASOPHILS 0.4 %; EOSINOPHILS 1.2 %; HEMATOCRIT 33.3 % (37.0-47.0); HEMOGLOBIN 11.5 gm/dL (12.0-15.0); LYMPHOCYTES 36.1 %; MCH 27.1 pg (26.0-34.0); MCHC 34.5 g/dL (28.0-37.0); MCV 78.5 fL (80.0-100.0); MONOCYTES 8.3 %; MPV 8.2 fl. (7.2-11.1); NUCLEATED RBCS 0 /100WBC; PLATELET COUNT* 386 thou/uL (150-400); RBC 4.24 mil/uL (4.20-5.00); WBC 10.6 thou/uL (4.0-11.0)
[2019-10-04 13:28] LABS: APTT 26.6 Seconds (25.0-31.3); INR 1.1; PROTIME 10.8 Seconds (9.20-11.50)
[2019-10-04 13:33] LABS: CREATININE 0.9 mg/dL (0.6-1.3); POTASSIUM 3.2 mmol/L (3.5-5.1)
[2019-10-04 13:42] LABS: ALBUMIN 3.4 g/dL (3.4-5.0); MAGNESIUM 1.5 mg/dL (1.8-2.4); TOTAL BILIRUBIN 0.5 mg/dL (<0.1-1.0); TOTAL PROTEIN 7.5 g/dL (6.4-8.2)
[2019-10-04 14:02] VITALS: BP 160/98
== END 2019-10-04 14:06 | disposition home or self-care (01) ==
LOC: M.ERS 12:48
PROVIDERS: Family Medicine
DX: R07.89 Other chest pain (principal); I10 Essential (primary) hypertension; E78.5 Hyperlipidemia, unspecified; F17.210 Nicotine dependence, cigarettes, uncomplicated; Z88.0 Allergy status to penicillin; Z90.89 Acquired absence of other organs

== ENCOUNTER 2019-11-15 16:13 | Emergency (ER) | payer OTHER, MEDICAID ==
[~2019-11-15] VITALS: Ht 185.4 cm; Wt 83.9 kg
[2019-11-15 16:23] VITALS: BP 126/90
[2019-11-15] MEDS ORDERED: CLEOCIN HCL300 MG PO (17:09)
[2019-11-15] MEDS ORDERED: NAPROSYN500 MG PO (17:11)
[2019-11-15] MEDS ORDERED: TYLENOL WITH CO1 TA1 PO (17:11)
== END 2019-11-15 17:17 | disposition home or self-care (01) ==
LOC: M.ERS 16:13
DX: K04.7 Periapical abscess without sinus (principal); I10 Essential (primary) hypertension; E78.5 Hyperlipidemia, unspecified; F17.210 Nicotine dependence, cigarettes, uncomplicated; Z88.0 Allergy status to penicillin; Z98.51 Tubal ligation status

== ENCOUNTER 2020-10-28 16:40 | Emergency (ER) | payer OTHER, MEDICAID ==
[~2020-10-28] VITALS: Ht 185.4 cm; Wt 79.4 kg
[~2020-10-28 16:40] MED LIST changes: +CLEOCIN HCL300 MG PO; +NAPROSYN500 MG PO; +TYLENOL WITH CO1 TA1 PO
[2020-10-28 17:02] LABS: ABSOLUTE BASOPHILS 0.1 thou/uL (0.0-0.2); ABSOLUTE EOSINOPHILS 0.1 thou/uL (0.0-0.7); ABSOLUTE LYMPHOCYTES 2.6 thou/uL (0.8-5.3); ABSOLUTE MONOCYTES 1.3 thou/uL (0.0-1.2); ABSOLUTE NEUTROPHILS 6.9 thou/uL (1.6-8.1); BASOPHILS 0.7 %; HEMOGLOBIN 11.9 gm/dL (12.0-15.0); LYMPHOCYTES 23.5 %; MCH 27.9 pg (26.0-34.0); MCHC 34.1 g/dL (28.0-37.0); MCV 81.9 fL (80.0-100.0); MONOCYTES 11.8 %; MPV 7.9 fl. (7.2-11.1); NUCLEATED RBCS 0 /100WBC; PLATELET COUNT* 376 thou/uL (150-400); RBC 4.27 mil/uL (4.20-5.00)
[2020-10-28 17:11] LABS: CALCIUM 8.2 mg/dL (8.5-10.1); CREATININE 0.8 mg/dL (0.6-1.3); POTASSIUM 3.1 mmol/L (3.5-5.1)
[2020-10-28 17:13] LABS: PROTIME 10.7 Seconds (9.20-11.50)
[2020-10-28 17:23] LABS: ALBUMIN 3.2 g/dL (3.4-5.0); CK-MB MASS 0.9 ng/mL (<0.5-3.6); MAGNESIUM 1.8 mg/dL (1.8-2.4); TOTAL BILIRUBIN 0.8 mg/dL (<0.1-1.0); TOTAL PROTEIN 7.1 g/dL (6.4-8.2)
[2020-10-28 17:30] VITALS: BP 137/83
--- NOTE | 2020-10-29 11:11 | EKG ---
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 : 1970 Requested By: Joe Mcgrath Order Number: [id number] MD: Alexandro Lee Measurements Intervals [place] Rate: 66 P: 32 TN: 169 QRS: -16 QRSD: 100 T: 15 QT: 442 QTc: 464 Interpretive Statements Sinus rhythm Probable left atrial enlargement Left ventricular hypertrophy Anterior Q waves, possibly due to LVH Compared to ECG 10/04/2019 12:54:07 Left ventricular hypertrophy now present Sinus tachycardia no longer present Electronically Signed On 10-29-2020 11:11:[address] PRODUCTION MANAGER by Alexandro Lee [email or web address] <ELECTRONICALLY SIGNED> By: Alexandro Lee MD, FACC 10/29/20 1111 1645 1645 Alexandro Lee MD, FAC /EPI
== END 2020-10-28 17:31 ==
LOC: M.ERS 16:40
PROVIDERS: Family Medicine
DX: R07.89 Other chest pain (principal); I10 Essential (primary) hypertension; E78.5 Hyperlipidemia, unspecified; Z98.51 Tubal ligation status